=== PATIENT | male | born 2005 | race Caucasian/White ===

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

== ENCOUNTER 2024-06-23 16:49 | Emergency (ER) | payer SELFPAY ==
[~2024-06-23] VITALS: Ht 180.3 cm; Wt 97.5 kg
[~2024-06-23 16:49] MED LIST changes: -ALBU1.256 INH; +ALBU1.257 INH; -MONT5TAB12 PO; +MONT5TAB80 PO
[2024-06-23 17:10] VITALS: BP_SYST 145; PULSE 82; RESP 18; TEMP 98.6; O2SAT 98
[2024-06-23 17:51] LABS: BILIRUBIN,URINE NEGATIVE (NEGATIVE); BLOOD, URINE NEGATIVE (NEGATIVE); CLARITY/URINE CLEAR (CLEAR); COLOR,URINE YELLOW (YELLOW); GLUCOSE,URINE NEGATIVE (NEGATIVE); KETONES,URINE TRACE (NEGATIVE); LEUKOCYTE ESTERASE ,URINE NEGATIVE (NEGATIVE); NITRITE, URINE NEGATIVE (NEGATIVE); PROTEIN URINE TRACE (NEGATIVE)
[2024-06-23 17:59] LABS: RBC,URINE NONE SEEN /HPF (0-3); WBC,URINE 0-3 /HPF (0-3)
[2024-06-23 18:00] LABS: BACTERIA,URINE RARE /HPF (None Seen); MUCUS,URINE None Seen /LPF (None Seen)
[2024-06-23] MEDS ORDERED: DOXY100C5 PO (18:15)
[2024-06-23 18:19] VITALS: BP_SYST 136; PULSE 86; RESP 18; TEMP 98.8; O2SAT 95
== END 2024-06-23 18:18 | disposition home or self-care (01) ==
LOC: SED 16:49
DX: L03.314 Cellulitis of groin (principal); J45.909 Unspecified asthma, uncomplicated; Z88.1 Allergy status to other antibiotic agents; Z79.899 Other long term (current) drug therapy; Z79.2 Long term (current) use of antibiotics
CPT/HCPCS: 81000; 81001; 81015; 99283